=== PATIENT | female | born 1985 | race Caucasian/White ===

== ENCOUNTER 2016-05-12 16:48 | Inpatient (IN) | payer MEDICAID ==
[~2016-05-12] VITALS: Ht 157.5 cm; Wt 78.6 kg
[~2016-05-12 16:48] MED LIST: PREN1TAB49 PO
[2016-05-12 17:25] VITALS: Ht 157.5 cm; Wt 78.6 kg
[2016-05-12 17:26] VITALS: BP 119/76; PULSE 83; RESP 22
[2016-05-12] MEDS ORDERED: LACTATED RINGER'S 1,000 ML IV SCH (17:29)
[2016-05-12] MEDS ORDERED: METHYLERGONOVINE 0.2 MG INJ IM PRN (17:30)
[2016-05-12] MEDS ORDERED: OXYTOCIN 30 UNITS/LR 500 ML IV PRN (17:30)
[2016-05-12] MEDS ORDERED: MISOPROSTOL 200 MCG TAB PR PRN (17:30)
[2016-05-12] MEDS ORDERED: CARBOPROST 250 MCG INJ IM PRN (17:30)
[2016-05-12] MEDS ORDERED: LIDOCAINE 1% (MPF) 30 ML INJ INJ PRN (17:30)
[2016-05-12] MEDS ORDERED: OXYTOCIN 30 UNITS/LR 500 ML IV SCH ×2 (17:30)
[2016-05-12] MEDS ORDERED: BUTORPHANOL 2 MG INJ IV PRN (17:30)
[2016-05-12 17:44] LABS: BASOPHILS % 0.4 % (0.0-2.0); EOSINOPHILS % 0.1 % (0.0-7.0); HEMATOCRIT 36.2 % (37.0-47.0); HEMOGLOBIN 11.8 g/dl (12.0-16.0); LYMPHOCYTES # 2.2 10^3/ul (0.8-2.9); LYMPHOCYTES % 20.7 % (15.0-51.0); MEAN CORPUSCULAR HEMOGLOBIN 24.3 pg (29.0-33.0); MEAN CORPUSCULAR HGB CONC 32.6 g/dl (32.0-37.0); MEAN CORPUSCULAR VOLUME 74.6 fl (82.0-101.0); MEAN PLATELET VOLUME 10.8 fl (7.4-10.4); MONOCYTE # 0.7 10^3/ul (0.3-0.9); MONOCYTES % 6.8 % (0.0-11.0); NEUTROPHIL # 7.7 10^3/ul (1.6-7.5); PLATELET COUNT 219 10^3/UL (140-440); RED BLOOD COUNT 4.85 10^6/ul (4.20-5.40); RED CELL DISTRIBUTION WIDTH 16.9 % (11.5-14.5); UNCORRECTED WBC 10.8 10^3/ul (4.8-10.8); WHITE BLOOD COUNT 10.8 10^3/ul (4.8-10.8)
[2016-05-12 17:46] LABS: CONDITION 1; LH ANALYZER COMMENTS 1
[2016-05-12 17:47] LABS: INR 0.91; PARTIAL THROMBOPLASTIN TIME 24.7 Sec (25.0-35.0); PROTIME 12.2 Sec (12.2-14.2)
--- NOTE | 2016-05-12 17:47 | HP ---
Date/Time of Note Date/Time of Note DATE: 05/12/16 TIME: 17:42 OB - History Hx of Present Free Text/Dictation 30 years old [place] female admitted to [facility] labor and delivery room in active labor on admission pelvic examination carried out cervical dilatation at 9 cm 100% effacement vertex presentation with thick meconium-stained neurotic fluid patient rushed into the labor and delivery room for immediate delivery Chief Complaint: labor pain Estimated Due Date: May 18, 2016 : 4 Para: 3 Care: Limited Care Ultrasounds: Normal mid trimester US Obstetrical Complications: None Past Family/Social History * Past Medical, Surgical, Family and Obstetric Histories reviewed from chart. Rubella: immune RPR/VDRL: Negative GBS Status: Negative HBsAG: Negative OB Admission Exam Vital Signs Vital Signs Vital Signs Date Time Temp Pulse Resp B/P Pulse Ox O2 Delivery O2 Flow Rate FiO2 05/12/16 17:26 98.2 83 22 119/76 Non Rebreather Physical Exam HEENT: WNL Heart: Rhythm Normal Lungs: Clear, Equal Abdomen: WNL Extremities: Normal Reflexes: Normal Cervical Dilatation: 9cm Effacement: 100% Station: 0 Amniotic Fluid: Thick Meconium Heart Rate: 130's Accelerations: No Accelerations Varibility: Minimum Contractions on Admission: < 5 Minutes Apart Intensity: KARLA Chacko MD May 12, 2016 17:46
--- NOTE | 2016-05-12 17:48 | LDN ---
Date/Time of Note Date/Time of Note DATE: 05/12/16 TIME: 17:47 Delivery Summary Placenta Delivered: Spontaneously Meconium: Thick Perineum intact?: Yes Anesthesia type: None Estimated blood loss: 250 Sponge & Needle done & correct: Yes All needle counts correct: Yes Any foreign bodies felt in the: No Problems: KARLA MCCURDY MD May 12, 2016 17:47
[2016-05-12] MEDS ORDERED: IBUPROFEN 600 MG TAB PO ONE (18:30)
--- NOTE | 2016-05-12 18:43 | DELSUM ---
Delivery Summary A-C Datetime Report Generated by CPN: 05/12/2016 18:43 DELIVERY PERSONNEL Rim Turning Machine Operator: Doug Phoebe MATERNAL INFORMATION Delivery Anesthesia: None Medications in Delivery: LR 500ML PITOCIN 30 UNITS Estimated Blood Loss (ml): 200 Placenta Cultured: No Maternal Complications: None Other Maternal Complications: previous section LABOR SUMMARY EDC: 05/17/2016 00:00 No. Babies in Womb: 1 Attempted: Yes Labor Anesthesia: None LABOR INFORMATION Reason for Induction: Not Applicable Onset of Labor: 05/12/2016 12:30 Complete Dilatation: 05/12/2016 17:00 Oxytocin: N/A Group B Beta Strep: Negative Antibiotics # of Doses: 0 Antibiotics Time of Last Dose: NA Steroids Given: None Reason Steroids Not Administered: Not Applicable MEMBRANES Membranes Rupture Method: Spontaneous Rupture of Membranes: 05/12/2016 17:00 Length of Rupture (hr): 0.17 Amniotic Fluid Color: Heavy Meconium Amniotic Fluid Amount: Large Amniotic Fluid Odor: Normal STAGES OF LABOR Stage 1 hr: 4 Stage 1 min: 30 Stage 2 hr: 0 Stage 2 min: 10 Stage 3 hr: 0 Stage 3 min: 3 Total Time in Labor hr: 4 Total Time in Labor min: 43 VAGINAL DELIVERY Episiotomy: None Laceration Extension: N/A Laceration Type: None Laceration Repair: Not Applicable Initial Vag Sponge Count: 20 Final Vag Sponge Count: 20 Initial Vag Sharps Count: 1 Final Vag Sharps Count: 1 Sponge Count Correct: Yes; Vaginal Sweep Performed Sharps Count Correct: Yes BABY A INFORMATION Delivery Date/Time: 05/12/2016 17:10 Method of Delivery: Vaginal Born in Route : No : Successful Forceps: N/A Vacuum Extraction: N/A Shoulder Dystocia : No SHOULDER DYSTOCIA BABY A Delivery Date/Time: 05/12/2016 17:10 PRESENTATION/POSITION BABY A Presentation: Cephalic Cephalic Presentation: Vertex Vertex Position: Left Occipital Anterior Breech Presentation: N/A PLACENTA INFORMATION BABY A Placenta Delivery Time : 05/12/2016 17:13 Placenta Method of Delivery: Spontaneous Placenta Status: Delivered SCORES BABY A Heart Rate 1 min: >100 bpm Resp Effort 1 min: Good Cry Reflex Irritability 1 min: Cough/Sneeze/Pulls Away Muscle Tone 1 min: Active Motion Color 1 min: Body [place], Extremit Blue Resuscitation Effort 1 min: Tactile Stimulation SCORE 1 MIN: 9 Heart Rate 5 min: >100 bpm Resp Effort 5 min: Good Cry Reflex Irritability 5 min: Cough/Sneeze/Pulls Away Muscle Tone 5 min: Active Motion Color 5 min: Body [place], Extremit Blue Resuscitation Effort 5 min: Tactile Stimulation SCORE 5 MIN: 9 INFANT INFORMATION BABY A Gestational Age at Delivery: 39.2 Gestational Status: Full Term- 39- 40.6 Weeks Outcome : Liveborn Infant Condition : Stable Sex: Female IDENTIFICATION/MEDS BABY A ID Band Number: [id number] ID Band Location: Right Leg; Left Arm Sensor Applied: Yes Sensor Number: [id number] Sensor Location : Cord Clamp Vitamin K Given : Not Given Erythromycin Given: Not Given WEIGHT/LENGTH BABY A Birthweight (gm): 3320 Infant Weight (lb): 7 Weight (oz): 5 Infant Length (in): 19.50 Length (cm): 49.53 CORD INFORMATION BABY A No. Cord Vessels: 3 Nuchal Cord : N/A Nuchal Cord- Other: 0 True Knot: 0 Cord Blood Taken: Yes Banking/Donate Info: NO Infant Suction: Mouth; Nose ASSESSMENT BABY A Complications: Decreased Variability; Meconium Physical Findings at Delivery: Within Normal Limits Infant Respirations: Appears Normal Sap Technical Developer/ALS Called : No Infant Care By: Kenyatta PECK RNC Transferred To: Remains with Mother
--- NOTE | 2016-05-12 18:43 | OPRPT ---
Intraop Record Datetime Report Generated by CPN: 05/12/2016 18:43 Datetime: 05/12/2016 17:10 Food Allergies/Reactions: none Latex Allergies/Reactions: No Latex Allergies Datetime: 04/08/2016 08:51 Drug Allergies/Reactions: No Known Allergy (07/21/2011)
[2016-05-12 20:45] VITALS: BP 116/71; PULSE 66; RESP 18
[2016-05-12] MEDS ORDERED: DIBUCAINE 1% 30 GM OINT PR PRN (21:30)
[2016-05-12] MEDS ORDERED: WITCH HAZEL/GLYCERIN PAD PR PRN (21:30)
[2016-05-12] MEDS ORDERED: ACETAMINOPHEN/CODEINE #3 TAB PO PRN ×2 (21:30)
[2016-05-12] MEDS ORDERED: ACETAMINOPHEN 325 MG TAB PO PRN (21:30)
[2016-05-12] MEDS ORDERED: LANOLIN 7 GM TUBE TOP PRN (21:30)
[2016-05-12] MEDS ORDERED: BENZOCAINE 20% 56 ML SPRAY TOP PRN (21:30)
[2016-05-12] MEDS ORDERED: OXYCODONE/ASPIRIN (4.88/325) TAB PO PRN ×2 (21:30)
[2016-05-12] MEDS ORDERED: ONDANSETRON 4 MG INJ IV PRN (21:30)
[2016-05-12] MEDS: SENNA/DOCUSATE NA (8.6MG/50MG) TAB PO SCH (21:44)
[2016-05-12] MEDS: IBUPROFEN 600 MG TAB PO SCH (23:33)
[2016-05-12 23:45] VITALS: BP 124/73; PULSE 77; RESP 18
[2016-05-13 04:00] VITALS: BP 98/54; PULSE 70; RESP 18
[2016-05-13] MEDS: IBUPROFEN 600 MG TAB PO SCH ×4 (06:01→23:48)
[2016-05-13] MEDS: OXYTOCIN 30 UNITS/LR 500 ML IV SCH (07:50)
[2016-05-13 07:56] VITALS: BP 102/58; PULSE 77; RESP 18
[2016-05-13 08:19] LABS: BASOPHILS % 0.3 % (0.0-2.0); EOSINOPHILS % 0.3 % (0.0-7.0); HEMATOCRIT 29.4 % (37.0-47.0); HEMOGLOBIN 9.6 g/dl (12.0-16.0); LYMPHOCYTES # 1.4 10^3/ul (0.8-2.9); LYMPHOCYTES % 17.9 % (15.0-51.0); MEAN CORPUSCULAR HEMOGLOBIN 24.5 pg (29.0-33.0); MEAN CORPUSCULAR HGB CONC 32.7 g/dl (32.0-37.0); MEAN PLATELET VOLUME 10.4 fl (7.4-10.4); MONOCYTE # 0.6 10^3/ul (0.3-0.9); NEUTROPHIL # 5.6 10^3/ul (1.6-7.5); NEUTROPHILS % 73.5 % (39.0-77.0); PLATELET COUNT 154 10^3/UL (140-440); RED BLOOD COUNT 3.93 10^6/ul (4.20-5.40); UNCORRECTED WBC 7.6 10^3/ul (4.8-10.8); WHITE BLOOD COUNT 7.6 10^3/ul (4.8-10.8)
[2016-05-13 08:28] LABS: CONDITION 1; LH ANALYZER COMMENTS 1
[2016-05-13] MEDS: SENNA/DOCUSATE NA (8.6MG/50MG) TAB PO SCH ×2 (08:52→20:49)
--- NOTE | 2016-05-13 09:34 | PN ---
Date/Time of Note Date/Time of Note DATE: 05/13/16 TIME: 09:33 OB Subjective Subjective Subjective day 1 Vital sign a stable afebrile abdomen soft uterus firm lochia normal extremity normal Laboratory Tests Test 05/12/16 17:20 05/13/16 06:50 Activated Partial Thromboplast Time 24.7Sec Basophils # 0.010^3/ul 0.010^3/ul Basophils % 0.4% 0.3% Blood Morphology Comment Eosinophils # 0.010^3/ul 0.010^3/ul Eosinophils % 0.1% 0.3% Hematocrit 36.2% 29.4% Hemoglobin 11.8g/dl 9.6g/dl INR International Normalized Ratio 0.91 Lymphocytes # 2.210^3/ul 1.410^3/ul Lymphocytes % 20.7% 17.9% Mean Corpuscular Hemoglobin 24.3pg 24.5pg Mean Corpuscular Hemoglobin Concent 32.6g/dl 32.7g/dl Mean Corpuscular Volume 74.6fl 75.0fl Mean Platelet Volume 10.8fl 10.4fl Monocytes # 0.710^3/ul 0.610^3/ul Monocytes % 6.8% 8.0% Neutrophils # 7.710^3/ul 5.610^3/ul Neutrophils % 72.0% 73.5% Nucleated Red Blood Cells # 0.010^3/ul 0.010^3/ul Nucleated Red Blood Cells % 0.0/100WBC 0.0/100WBC Platelet Count 38438^3/UL 28773^3/UL Prothrombin Time 12.2Sec Prothrombin Time Ratio 1.0 Red Blood Count 4.8510^6/ul 3.9310^6/ul Red Cell Distribution Width 16.9% 17.0% White Blood Count 10.810^3/ul 7.610^3/ul Current Medications Medications (Trade) Dose Ordered Sig/Flor Route PRN Reason Start Time Stop Time Status Last Admin Dose Admin Lactated Ringer's (Lr) 1,000 ml @ 125 mls/hr Q8H IV 05/12/16 17:29 05/12/16 21:34 DC 05/12/16 17:00 Butorphanol Tartrate (Stadol) 2 mg Q2H PRN IV PAIN 05/12/16 17:30 05/12/16 21:35 DC Lidocaine 30 ml 30 ml ONCE PRN INJ EPISIOTOMY/TEARING 05/12/16 17:30 05/12/16 21:35 DC Oxytocin/Lactated Ringer's 500 ml @ 125 mls/hr ONCE -MAY REPEAT X1 IV 05/12/16 17:30 05/12/16 21:35 DC 05/12/16 17:10 Oxytocin/Lactated Ringer's 500 ml @ 125 mls/hr ONCE IV 05/12/16 17:30 05/12/16 21:35 DC 05/12/16 17:55 Oxytocin/Lactated Ringer's 500 ml @ 0 mls/hr ONCE PRN IV For Hemorrhage Management 05/12/16 17:30 05/12/16 21:35 DC Methylergonovine Maleate (Methergine) 0.2 mg ONCE PRN IM VAGINAL BLEEDING 05/12/16 17:30 05/12/16 21:35 DC 05/12/16 19:21 Carboprost Tromethamine (Hemabate) 250 mcg ONCE PRN IM VAGINAL BLEEDING 05/12/16 17:30 05/12/16 21:35 DC Misoprostol (Cytotec) 1,000 mcg ONCE PRN MO VAGINAL BLEEDING 05/12/16 17:30 05/12/16 21:35 DC Ibuprofen 600 mg 600 mg ONCE ONCE PO 05/12/16 18:30 05/12/16 18:31 DC 05/12/16 18:20 Oxytocin/Lactated Ringer's 500 ml @ 125 mls/hr Q4H IV 05/12/16 21:30 05/13/16 05:29 DC Ibuprofen (Motrin) 600 mg Q6 PO 05/13/16 00:00 05/13/16 06:01 Acetaminophen (Tylenol Tab) 650 mg Q4H PRN PO PAIN LEVEL 1-5 05/12/16 21:30 Acetaminophen/ Codeine Phosphate (Tylenol No.3) 1 tab Q4H PRN PO PAIN LEVEL 1-5 05/12/16 21:30 05/12/16 21:44 Acetaminophen/ Codeine Phosphate (Tylenol No.3) 2 tab Q4H PRN PO PAIN LEVEL 6-10 05/12/16 21:30 Oxycodone/Aspirin (Percodan) 1 tab Q3H PRN PO PAIN LEVEL 1-5 05/12/16 21:30 Oxycodone/Aspirin (Percodan) 2 tab Q3H PRN PO PAIN LEVEL 6-10 05/12/16 21:30 Ondansetron HCl (Zofran Inj) 4 mg Q6H PRN IV NAUSEA AND/OR VOMITING 05/12/16 21:30 Senna/Docusate Sodium (Senokot-S) 1 tab BID PO 05/12/16 21:30 05/13/16 08:52 Witch Phoebe/ Glycerin (Tucks Pads) 1 pad BEDSIDE MEDICATION PRN MO HEMORRHOID/EPISIOTMY PAIN 05/12/16 21:30 05/12/16 21:50 Benzocaine (Dermoplast [place]) 1 spray BEDSIDE MEDICATION PRN TOP HEMORRHOID/EPISIOTMY PAIN 05/12/16 21:30 05/12/16 21:50 Dibucaine (Nupercainal) 1 applic BEDSIDE MEDICATION PRN MO HEMORRHOID/EPISIOTMY PAIN 05/12/16 21:30 Lanolin (Rrx-Q-Lktgsn) 1 applic BEDSIDE MEDICATION PRN TOP BEDSIDE FOR [place] TO NIPPLES 05/12/16 21:30 05/12/16 22:07 Measles/Mumps/ Rubella Vaccine Live (Mmr Ii Vaccine) 0.5 ml ONCE ONCE SC* 05/14/16 09:00 05/14/16 09:01 Influenza Virus Vaccine (Fluzone) 0.5 ml ONCE ONCE IM* 05/14/16 09:00 05/14/16 09:01 KARLA MCCURDY MD May 13, 2016 09:34
[2016-05-13 11:41] VITALS: BP 102/64; PULSE 75; RESP 19
[2016-05-13 16:00] VITALS: BP 104/79; PULSE 82; RESP 16
[2016-05-13 20:00] VITALS: BP 105/60; PULSE 91; RESP 16
[2016-05-14 04:00] VITALS: BP 97/64; PULSE 75; RESP 18
[2016-05-14] MEDS: IBUPROFEN 600 MG TAB PO SCH ×2 (05:34→11:30)
[2016-05-14 08:00] VITALS: BP 101/71; PULSE 77; RESP 18
[2016-05-14] MEDS ORDERED: INFLUENZA VIRUS VACCINE 0.5 ML (DISPENSING) IM* ONE (09:00)
[2016-05-14] MEDS ORDERED: MEASLES,MUMPS,RUBELLA VACCINE INJ SC* ONE (09:00)
--- NOTE | 2016-05-14 09:39 | PD.PPDC ---
MASK INSPECTOR Discharge Instruction Condition Patient Condition: Good Activity/Restrictions Activity: Normal Activity May Shower Restrictions: No Exercising No Lifting No Driving No Sexual Activity Nothing in the Vagina No [place] No Tampons, douche Follow-up Follow-up with Physician: 2, Week/Weeks Return to clinic for [employer]ORCH [employer]TER Instructions: Fever greater than 101 Worsening abdominal pain More than 2 pads per hour OB Instructions: Breast Tenderness KARLA MCCURDY MD May 14, 2016 09:39
--- NOTE | 2016-05-14 09:44 | DS ---
Date/Time of Note Date/Time of Note DATE: 05/14/16 TIME: 09:42 Obstetrical Discharge Record Final Diagnosis Final Diagnosis: Term delivered Vaginal Delivery Obstetrical Delivery: Spontaneous Condition on Discharge Physical Assessment Last Vitals: Vital signs are stable afebrile abdomen soft uterus firm lochia normal extremity normal discharge instructions given appointment to the clinic in 2 weeks Voiding: Yes Bowel Movement: Yes Breast: Soft, non-tender, Filling Fundus: Firm Calf Tenderness: No Patient Condition: Good KARLA MCCURDY MD May 14, 2016 09:43
[2016-05-14] MEDS: SENNA/DOCUSATE NA (8.6MG/50MG) TAB PO SCH (11:30)
== END 2016-05-14 15:35 | disposition home or self-care (01) | DRG 775 ==
LOC: OBT 16:48 → L-D 16:58 → UNDOADMIN 16:58 → EDSTATUS 17:07 → L-D 17:08 → PP1 20:55
PROVIDERS: ADMIT Obstetrics & Gynecology; ATTEND Obstetrics & Gynecology
PROC: 10E0XZZ Delivery of Products of Conception, External Approach (ICD-10-PCS; principal; 2016-05-12)
DX: O80 Encounter for full-term uncomplicated delivery (principal); Z37.0 Single live birth; Z3A.37 37 weeks gestation of pregnancy
CPT/HCPCS: 85025; 85610; 85730; 86592; 86900; 86901; 90686; 99464; G0463; J7120